=== PATIENT | female | born 1985 | race Caucasian/White ===

== ENCOUNTER 2017-11-16 14:43 | Emergency (ER) | payer OTHER ==
[2017-11-16] MEDS ORDERED: Ibuprofen 800 MG Tab PO ONE (16:04)
--- NOTE | 2017-11-16 16:07 | EDM.PDOC ---
ED HPI GENERAL MEDICAL PROBLEM - General Chief Complaint: Upper Extremity Injury/Pain Stated Complaint: RT WRIST INJURY Time Seen by Provider: 11/16/17 15:37 Source of Information: Reports: Patient History Limitations: Reports: No Limitations - History of Present Illness INITIAL COMMENTS - FREE TEXT/NARRATIVE: The patient is a 32-year-old female with a chief complaint of right hand pain after punching a wall. She is incarcerated. She has no additional complaint. She has a history of a prior fifth metacarpal fracture on that side, that was a long time ago. No numbness or weakness. Pain is moderate. Pain is worse with head movements. She is able to move her fingers. 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 - Past Surgical History Other Female Surgeries/Procedures: laparoscopy for endometriosis Social & Family History - Tobacco Use Smoking Status *Q: Former Smoker Used Tobacco, but Quit: Yes Month/Year Tobacco Last Used: 2017 - Caffeine Use Caffeine Use: Reports: None - Recreational Drug Use Recreational Drug Use: No Review of Systems - Review of Systems Review Of Systems: See Below Constitutional: Reports: No Symptoms Respiratory: Reports: No Symptoms Cardiovascular: Reports: No Symptoms GI/Abdominal: Reports: No Symptoms Musculoskeletal: Reports: Hand Pain Skin: Denies: Wound ED EXAM, GENERAL - Physical Exam Exam: See Below Exam Limited By: No Limitations General Appearance: Alert, WD/WN, No Apparent Distress Eye Exam: Bilateral Eye: Normal Inspection Ears: Normal External Exam Nose: Normal Inspection Throat/Mouth: Normal Inspection, Normal Oropharynx, Normal Voice, No Airway Compromise Head: Atraumatic, Normocephalic Neck: Normal Inspection Respiratory/Chest: No Respiratory Distress Cardiovascular: Normal Peripheral Pulses Extremities: Other (Right upper extremity: Patient has mild soft tissue swelling and erythema at the distal aspect of the third fourth and fifth metacarpals. No additional hand swelling. Full range of motion of the fingers. Mild tenderness of the distal third fourth and fifth metacarpals.) Neurological: Alert, Oriented, Normal Cognition Psychiatric: Normal Affect, Normal Mood Skin Exam: Warm, Dry, Intact, Normal Color, No Rash Course - Vital Signs Last Recorded V/S: Last Vital Signs Temp 36.9 C 11/16/17 15:26 Pulse 76 11/16/17 15:26 Resp 15 11/16/17 15:26 BP 136/82 11/16/17 15:26 Pulse Ox 97 11/16/17 15:26 - Orders/Labs/Meds Orders: Active Orders 24 hr Category Date Time Status Forearm 2V Rt [CR] Stat Exams 11/16/17 15:37 Taken Hand Comp Min 3V Rt [CR] Stat Exams 11/16/17 15:37 Taken Meds: Medications Discontinued Medications Generic Name Dose Route Start Last Admin Trade Name Freq PRN Reason Stop Dose Admin Ibuprofen 800 mg 11/16/17 16:04 Motrin PO 11/16/17 16:05 ONETIME ONE - Re-Assessments/Exams Free Text/Narrative Re-Assessment/Exam: 11/16/17 16:10 X-ray of the right hand showed no fractures. Departure - Departure Time of Disposition: 16:04 Disposition: Home, Self-Care 01 Clinical Impression: Hand contusion Qualifiers: Encounter type: initial encounter Laterality: right Qualified Code(s): S60.221A - Contusion of right hand, initial encounter - Discharge Information Prescriptions: Ibuprofen 600 mg PO QID PRN #40 tablet PRN Reason: Pain Referrals: An Ortiz PA-C [Primary Care Provider] - Forms: ED Department Discharge Additional Instructions: 1. Take ibuprofen and/or acetaminophen as needed for pain 2. Ice areas of pain on and off for the next two days. Keep hand elevated when possible to reduce swelling. 3. Follow up with a primary care provider next week if you still have pain. - My Orders Last 24 Hours: My Active Orders 11/16/17 15:37 Forearm 2V Rt [CR] Stat Hand Comp Min 3V Rt [CR] Stat - Assessment/Plan Last 24 Hours: My Active Orders 11/16/17 15:37 Forearm 2V Rt [CR] Stat Hand Comp Min 3V Rt [CR] Stat
--- NOTE | 2017-11-17 06:51 | CR ---
Right forearm: Two views of the right forearm were obtained. No fracture or other abnormality is seen. Impression: 1. No abnormality is identified on two-view right forearm study. Diagnostic code #1
--- NOTE | 2017-11-17 06:51 | CR ---
Right hand: Four views of the right hand were obtained. Comparison: No prior study. Joint spaces are preserved. No fracture, dislocation or other bony abnormality is seen. Impression: 1. No abnormality is identified on right hand exam. Diagnostic code #1
== END 2017-11-16 16:23 | disposition home or self-care (01) ==
LOC: JD.ED 14:43
DX: S60.221A Contusion of right hand, initial encounter (principal); Z91.030 Bee allergy status; Z87.891 Personal history of nicotine dependence; W22.8XXA Striking against or struck by other objects, initial encounter
CPT/HCPCS: 73090-26-RT; 73090-RT; 73130-26-RT; 73130-RT; 99283

== ENCOUNTER 2019-05-22 10:22 | Emergency (ER) | payer OTHER ==
--- NOTE | 2019-05-22 11:46 | CT ---
Head CT Technique: Multiple axial sections through the brain were obtained. Intravenous contrast was utilized. Comparison: No prior intracranial imaging is available. Findings: Ventricles along with basal cisterns and sulci over the convexities appear within normal limits for the patient's age. No abnormal parenchymal densities are seen. No evidence of intracranial hemorrhage. No midline shift or mass effect is appreciated. Bone window settings were reviewed which shows no acute calvarial abnormality. Mastoid sinuses show nothing acute. Visualized paranasal sinuses show nothing acute. Impression: 1. Nothing acute is appreciated on noncontrast head CT study Note: Given the patient's symptoms, consider MRI to further evaluate. Diagnostic code #1 Study was dictated in [place] Standard Time
[2019-05-22] MEDS ORDERED: Sodium Chloride 0.9% 1,000 ML IV SCH (12:45)
--- NOTE | 2019-05-22 14:24 | EDM.PDOC ---
ED HPI GENERAL MEDICAL PROBLEM - General Chief Complaint: Neuro Symptoms/Deficits Stated Complaint: DIZZY SENT BY [employer] Time Seen by Provider: 05/22/19 10:59 Source of Information: Reports: Patient, RN Notes Reviewed - History of Present Illness INITIAL COMMENTS - FREE TEXT/NARRATIVE: 34-year-old female is brought here to the ED by staff member from the [facility] with symptoms of blurry vision right eye and numbness and paresthesias left hand and arm less or extent left leg and foot. she states that she felt lightheaded and dizzy yesterday and especially last evening as to feel lightheaded and dizzy today when standing or walking. She did awaken at around 6:30 to take morning meds which would've been about 4 hours ago and at that time she did not have numbness of upper or lower extremities. She did awaken around 8:00 this morning she did have the numbness of her left hand arm and feeling of mild numbness or " weight of her left foot and lower leg. Last known well would be around 6:30 this morning 4 hours prior to arrival. At 8 :00 she then also noticed the blurriness of vision right eye. When she looked in the mirror she could see that her right eye was dilated compared to the left She is not aware of having difficulty in the past. There's been no speech difficulty. She feels some pressure to the top of her head but no generalized headache. This was called stroke alert due to presenting sx. - Related Data Allergies Allergy/AdvReac Type Severity Reaction Status Date / Time bee pollen Allergy Anaphylactic Verified 05/22/19 10:44 Shock Home Meds: Home Meds DULoxetine [Cymbalta] 60 mg PO DAILY 05/22/19 [History] Methadone 45 mg PO DAILY 05/22/19 [History] Sennosides [Senna] 8.6 mg PO DAILY 05/22/19 [History] cloNIDine [Catapres] 0.2 mg PO BID 05/22/19 [History] Past Medical History HEENT History: Reports: Impaired Vision, Otitis Media Other HEENT History: wears eyeglasses. Genitourinary History: Reports: UTI, Recurrent [employer] History: Reports: Endometriosis, Musculoskeletal History: Reports: Fracture Neurological History: Reports: Concussion, Head Trauma Psychiatric History: Reports: Addiction, Anxiety, Depression, PTSD Hematologic History: Reports: Anemia - Infectious Disease History Infectious Disease History: Reports: Chicken Pox - Past Surgical History Other Female Surgeries/Procedures: laparoscopy for endometriosis Social & Family History - Tobacco Use Smoking Status *Q: Never Smoker Second Hand Smoke Exposure: No - Caffeine Use Caffeine Use: Reports: Coffee, Soda - Recreational Drug Use Recreational Drug Use: Yes Drug Use in Last 12 Months: Yes Recreational Drug Type: Reports: Heroin, Marijuana/Hashish, Methamphetamine Other Recreational Drug Type: last use in "October." ED ROS GENERAL - Review of Systems Review Of Systems: See Below Constitutional: Denies: Fever, Chills, Diaphoresis HEENT: Reports: Vision Change (very mild blurriness R eye). Denies: Ear Discharge, Ear Pain, Eye Discharge, Eye Pain, Sinus Problem, Throat Pain, Vertigo Respiratory: Denies: Shortness of Breath, Wheezing Cardiovascular: Denies: Chest Pain GI/Abdominal: Denies: Abdominal Pain, Nausea, Vomiting Musculoskeletal: Denies: Neck Pain, Arm Pain, Back Pain Skin: Denies: Rash Neurological: Reports: Dizziness, Headache (pressure feeling top of head), Numbness (LUE and LLE), Other (no numbness head or face, no facial droop or speech difficulty) Psychiatric: Reports: No Symptoms ED EXAM, NEURO - Physical Exam Exam: See Below General Appearance: Alert, No Apparent Distress Eye Exam: Bilateral Eye: Vision Changes (visual acuity as per nursing note), Other (R pupil is mildly more dilated than the left) Ears: Normal External Exam, Normal Canal Nose: Normal Inspection Throat/Mouth: Normal Inspection, Normal Oropharynx Head Exam: Atraumatic. No: Facial Swelling Neck: Supple, Full Range of Motion, Other (no JVD) Respiratory/Chest: No Respiratory Distress, Lungs Clear, Normal Breath Sounds Cardiovascular: Normal Peripheral Pulses, Regular Rate, Rhythm GI/Abdominal: Soft, Non-Tender Neurological: Alert, Normal Mood/Affect, Normal Gait, Oriented x 3, Other ( finger to nose testing nl, no focal weakness, no gait difficulty, slight decrease sensation to touch LUE, good sensation and motor LLE. ). No: Abnormal Motor, Difficulty Walking Extremities: Normal Inspection, Normal Range of Motion Skin Exam: Warm, Dry, Normal Color, No Rash Course - Vital Signs Last Recorded V/S: Last Vital Signs Temp 96.9 F 05/22/19 17:15 Pulse 64 05/22/19 17:15 Resp 16 05/22/19 17:15 BP 118/75 05/22/19 17:15 Pulse Ox 96 05/22/19 17:15 Orthostatic Blood Pressure [ 92/63 Standing] Orthostatic Blood Pressure [ 96/60 Sitting] Orthostatic Blood Pressure [ 103/65 Supine] - Orders/Labs/Meds Labs: Laboratory Tests 05/22/19 05/22/19 Range/Units 11:15 11:15 WBC 7.72 (3.98-10.04) K/mm3 RBC 4.45 (3.98-5.22) M/mm3 Hgb 12.4 (11.2-15.7) gm/dl Hct 38.4 (34.1-44.9) % MCV 86.3 (79.4-94.8) fl MCH 27.9 (25.6-32.2) pg MCHC 32.3 (32.2-35.5) g/dl RDW Std Deviation 39.3 (36.4-46.3) fL Plt Count 282 (182-369) K/mm3 MPV 9.1 L (9.4-12.3) fl Neut % (Auto) 50.9 (34.0-71.1) % Lymph % (Auto) 36.9 (19.3-51.7) % Clinch % (Auto) 7.5 (4.7-12.5) % Eos % (Auto) 3.8 (0.7-5.8) Baso % (Auto) 0.6 (0.1-1.2) % Neut # (Auto) 3.93 (1.56-6.13) K/mm3 Lymph # (Auto) 2.85 (1.18-3.74) K/mm3 Clinch # (Auto) 0.58 H (0.24-0.36) K/mm3 Eos # (Auto) 0.29 (0.04-0.36) K/mm3 Baso # (Auto) 0.05 (0.01-0.08) K/mm3 Sodium 140 (136-145) mEq/L Potassium 4.4 (3.5-5.1) mEq/L Chloride 105 (98-107) mEq/L Carbon Dioxide 27 (21-32) mEq/L Anion Gap 12.4 (5-15) BUN 15 (7-18) mg/dL Creatinine 0.8 (0.55-1.02) mg/dL Est Cr Clr Drug Dosing 69.83 mL/min Estimated GFR (MDRD) > 60 (>60) mL/min BUN/Creatinine Ratio 18.8 H (14-18) Glucose 100 (74-106) mg/dL Calcium 8.5 (8.5-10.1) mg/dL Total Bilirubin 0.5 (0.2-1.0) mg/dL AST 20 (15-37) U/L ALT 26 (14-59) U/L Alkaline Phosphatase 78 (46-116) U/L Total Protein 7.0 (6.4-8.2) g/dl Albumin 3.6 (3.4-5.0) g/dl Globulin 3.4 gm/dL Albumin/Globulin Ratio 1.1 (1-2) Meds: Medications Discontinued Medications Generic Name Dose Route Start Last Admin Trade Name Efra PRN Reason Stop Dose Admin Gadobenate Dimeglumine 20 ml 05/22/19 15:40 05/22/19 15:41 Multihance IVPUSH 05/22/19 15:41 20 ml ONETIME ONE Administration Sodium Chloride 1,000 mls @ 999 mls/hr 05/22/19 12:45 05/22/19 12:41 Normal Saline IV 999 mls/hr ONETIME PHYLICIA Administration Sodium Chloride 30 ml 05/22/19 15:45 05/22/19 15:41 Saline Flush FLUSH 30 ml ASDIRECTED PHYLICIA Administration - Re-Assessments/Exams Free Text/Narrative Re-Assessment/Exam: 05/22/19 12:24 last known well about 6:30 this morning, about 4 hours prior to arrival. This was called a stroke alert based on symptoms on arrival to ED. Initial neuro exam was normal other than slight decrease to touch sensation left hand and arm. There was no focal weakness, no difficulty with finger to nose testing, no facial numbness,no speech impairment. Head CT did come back normal. MRI suggested based on symptoms. That has been no ordered. Awaiting MRI at this time. her blood pressure was low when I did check on her not long ago. She states she has been drinking water but her mouth is very dry, will run a full liter of normal saline. 05/27/19 18:23. MRI head, MRA neck and head all did come back normal. L sided numbness almost gone at time of reeval and time of discharge. Continued to have mildly larger R pupil compared to Left at time of discharge. Visual acuity at time of discharge was quite good, slightly decreased right compared to left. Discharge instr. as documented. Departure - Departure Time of Disposition: 17:14 Disposition: Home, Self-Care 01 Condition: Fair Clinical Impression: Paresthesias - Discharge Information Referrals: An Ortiz PA-C [Primary Care Provider] - Forms: ED Department Discharge Additional Instructions: The paresthesias, numbness and tingling that you have had of your left arm and leg should continue to get better over the next 12-24 hours. The expectation is that the dilitation of your R eye will also normalize over the next 1 to 2 days. See [employer] if eye symptoms not back to normal within 2 days as expected. Return to Ed if symptoms worsening in any way. Sepsis Event Note - Evaluation Sepsis Screening Result: No Definite Risk - Focused Exam Date Exam was Performed: 05/27/19 Time Exam was Performed: 18:18
[2019-05-22] MEDS ORDERED: Gadobenate Dimeglumine 529 MG/ML 20 ML SDV IVPUSH ONE (15:40)
[2019-05-22] MEDS ORDERED: Sodium Chloride 0.9% 10 ML Syringe FLUSH SCH (15:45)
--- NOTE | 2019-05-22 16:11 | MR ---
MR angiogram of neck Technique: MR angiogram study of the neck was obtained. Intravenous gadolinium was given. Multiple MIP images were obtained. Comparison: No prior neck imaging. Findings: Common carotid arteries on both sides appear normal. Internal carotid arteries and external carotid arteries are within normal limits. Vertebral arteries appear normal on both sides. No focal occlusion or stenosis is seen. No dissection is seen. Impression: 1. No abnormality is identified on MR angiogram study of the neck. Diagnostic code #1 Study was dictated in [place] Standard Time
--- NOTE | 2019-05-22 16:11 | MR ---
MRI brain (without and with intravenous contrast) Technique: T1 sagittal; T2, T2 FLAIR, T1 and diffusion axial; T2 gradient echo and T1 coronal; T2 FLAIR axial images were also obtained. T1 post gadolinium axial and post gadolinium T1 FLAIR coronal. Comparison: Prior head CT study performed earlier on the same day (11:10 AM). Findings: Ventricles along with basal cisterns and sulci over the convexities are within normal limits for the patient's age. No acute diffusion abnormalities are seen. Minimal increased signal is seen within the white matter within the right parietal region. This shows no abnormal diffusion and also shows no abnormal enhancement and is believed to represent an old small area of demyelination. No other abnormal signal is seen within the brain parenchyma. No midline shift or mass effect is appreciated. No abnormal enhancement is seen. Impression: 1. Small white matter area of increased signal showing no abnormal enhancement or no abnormal diffusion which likely represents a small nonspecific area of white matter demyelination within the right parietal white matter. 2. No additional abnormality is appreciated on MRI study of the brain. Diagnostic code #2 Study was dictated in [place] Standard Time
--- NOTE | 2019-05-22 16:32 | MR ---
MRI angiogram of brain Technique: [id number] MR angiogram study was obtained centered to the [place]. Multiple MIP images were obtained in multiple projections. Findings: Two distal vertebral arteries are seen which are patent. Basilar artery is patent. Posterior cerebral arteries appear within normal limits. Internal carotid arteries are seen distally and appear patent. Anterior and middle cerebral arteries appear patent. No focal stenosis is seen. No occlusion is identified. No discrete aneurysm is appreciated. Impression: 1. No abnormality is identified on MR angiogram study of the brain. Diagnostic code #1 Study was dictated in [place] Standard Time
== END 2019-05-22 17:35 | disposition home or self-care (01) ==
LOC: JD.ED 10:22
DX: R20.2 Paresthesia of skin (principal); Z91.030 Bee allergy status
CPT/HCPCS: 36415; 70450; 70544; 70548; 70553; 80053; 85025; 96360; 99284; A9577; J7030; 99283

== ENCOUNTER 2020-08-09 20:35 | Observation (INO) | payer MEDICAID ==
--- NOTE | 2020-08-09 21:54 | PCM.SN.2 ---
- Free Text/Narrative Note: Evaluation Note OB Physician: Dr. Smith HPI: Juany Frost is a 35-year-old -4-1-5 at 26 weeks 0 days who presents complaining of leaking of fluid and cramping. She reports that this afternoon she had a small amount of leaking of fluid that was clear fluid. She has not had any additional leaking of fluid since then. About an hour after the leaking of fluid she started to have some cramping and tightening in her abdomen. Patient has a significant history for delivery and was concerned that this may have been her water breaking as she has had in previous pregnancies. She denies any fevers or chills. Denies any nausea or vomiting. Denies any urinary symptoms. Denies any dysuria, urinary frequency or urgency. Denies any constipation or diarrhea. Reports that she has been taking normal amounts of fluid. She denies any recent drug use. She does have a history of drug use with amphetamines, marijuana and methamphetamine. Her care has been with Dr. Smith and is complicated by: * History of delivery and PPROM with 4 previous deliveries between 24 to 33 weeks gestational age and 1 SAB at 19 weeks gestational age. * Rh- status * Advanced maternal age Vitals: Vital Signs - 24 hr 08/09/20 20:47 Temperature [ 37.6 C Temporal] Pulse, 97 Peripheral [ Pulse Oximetry] Respiratory 16 Rate Blood Pressure 136/75 [Upper Arm] O2 Sat by Pulse 99 Oximetry Physical Examination: General: No acute distress, alert and oriented Lungs: Clear to auscultation bilaterally Heart: Regular rate and rhythm Abdomen: Soft, nontender, nondistended, gravid Pelvis: Normal-appearing external genitalia with normal-appearing labia majora and labia minora. No blood or fluid noted on the perineum. Extremities: No edema noted in bilateral lower extremities Sterile spec exam: Normal-appearing vaginal mucosa with small amount of suspected physiologic discharge noted in the vaginal vault, normal-appearing cervix with closed cervical opening, no bleeding or fluid coming from the cervical opening, fibronectin and wet prep swab collected Cervical exam: 0/10/-5/firm/posterior at 21:33 with exam performed by myself ----> 0/10/-5/firm/posterior at 23:08 with exam performed by myself FHT: 150s, moderate variability, positive 10 x 10 accelerations, intermittent variable decelerations [place]: Intermittent contractions every 3 to 5 minutes on initial monitoring with uterine irritability noted after oral hydration Labs: Laboratory Tests 08/09/20 08/09/20 08/09/20 Range/Units 20:55 20:55 20:57 Urine Color Yellow (Yellow) Urine Appearance Clear (Clear) Urine pH 6.0 (5.0-8.0) Ur Specific [place] > or = 1.030 (1.005-1.030) Urine Protein Negative (Negative) Urine Glucose (UA) Negative (Negative) Urine Ketones Trace H (Negative) Urine Occult Blood Negative (Negative) Urine Nitrite Negative (Negative) Urine Bilirubin Negative (Negative) Urine Urobilinogen 0.2 (0.2-1.0) Ur Leukocyte Esterase Negative (Negative) Urine RBC 0-5 (0-5) /hpf Urine WBC 0-5 (0-5) /hpf Ur Squamous Epith Cells 5-10 H (0-5) /hpf Urine Bacteria Moderate H (FEW) /hpf Urine Mucus Moderate H (FEW) /hpf Membrane Rupture Negative Urine Opiates Screen Negative (YUDCYU=088) Ur Buprenorphine Scrn Negative (CUTOFF=10) Ur Oxycodone Screen Negative (PJX9GN=727) Urine Methadone Screen Negative (HYEXPJ=366) Ur Propoxyphene Screen Negative (MCMTBX=989) Ur Barbiturates Screen Negative (UCIUYL=765) Ur Tricyclics Screen Negative (QGOYTX=933) Ur Phencyclidine Scrn Negative (CUTOFF=25) Ur Amphetamine Screen Negative (WGQGYN=867) U Methamphetamines Scrn Negative (FEEENO=452) U Benzodiazepines Scrn Negative (NPFJRN=848) U Cocaine Metab Screen Negative (QSFHAO=395) U Marijuana (THC) Screen Negative (CUTOFF=50) Fibronectin 08/09/20 Range/Units 21:32 Urine Color (Yellow) Urine Appearance (Clear) Urine pH (5.0-8.0) Ur Specific [place] (1.005-1.030) Urine Protein (Negative) Urine Glucose (UA) (Negative) Urine Ketones (Negative) Urine Occult Blood (Negative) Urine Nitrite (Negative) Urine Bilirubin (Negative) Urine Urobilinogen (0.2-1.0) Ur Leukocyte Esterase (Negative) Urine RBC (0-5) /hpf Urine WBC (0-5) /hpf Ur Squamous Epith Cells (0-5) /hpf Urine Bacteria (FEW) /hpf Urine Mucus (FEW) /hpf Membrane Rupture Urine Opiates Screen (MAZTGX=183) Ur Buprenorphine Scrn (CUTOFF=10) Ur Oxycodone Screen (MZM8UT=350) Urine Methadone Screen (CKPZLP=549) Ur Propoxyphene Screen (RDCHKY=773) Ur Barbiturates Screen (VROYYG=143) Ur Tricyclics Screen (DFVRHI=641) Ur Phencyclidine Scrn (CUTOFF=25) Ur Amphetamine Screen (SFUWPX=354) U Methamphetamines Scrn (KFRAXF=166) U Benzodiazepines Scrn (WVZJAC=951) U Cocaine Metab Screen (EMERZE=551) U Marijuana (THC) Screen (CUTOFF=50) Fibronectin Negative Interventions: Oral hydration Macrobid 100 mg p.o. Discharge Medications: Macrobid 100 mg twice daily x5 days Assessment and Plan: Juany Frost is a 35-year-old -4-1-5 at 26 weeks 0 days with suspected urinary tract infection in the second trimester of with mild dehydration * Suspected urinary tract infection -patient with suspected urinary tract infection based on moderate amount of bacteria found in the urine. Patient was also having some cramping that may be due to this urinary tract infection. It is possible that the cramping was also due to some mild dehydration. The cramping did improve with oral rehydration. Patient given Macrobid 100 mg prior to discharge. Patient to continue with Macrobid 100 mg twice daily for 5 days. A urine culture was sent and we will follow up on the results once they are available. If there is no evidence of urinary tract infection then she should stop the antibiotic at that time. * Uterine cramping -patient with some mild uterine cramping and abdominal tightening that started after her small gush of fluid. There was no evidence of premature rupture of membranes with negative AmniSure. No evidence of labor with unchanged cervical exam over the course of 1.5 hours. Patient had negative fibronectin. Wet prep did not show any evidence of bacterial vaginosis or yeast infection. Her urine did show possible urinary tract infection and is going to be treated with antibiotics. Did also show some mild dehydration. Recommend for patient to stay well-hydrated and rest if she is having some cramping symptoms. * Reassuring heart tones for gestational age on monitoring * She was given strict return precautions including leaking of fluid, uterine cramping or vaginal bleeding. Patient verbalized understanding. * Patient should follow-up with her regular provider for next scheduled appointment. Brent Lee MD 11:17 PM 08/09/2020
[2020-08-09] MEDS ORDERED: Nitrofurantoin Monohydrate/Macrocrystalline 100 MG Cap PO ONE (23:13)
== END 2020-08-09 23:30 ==
LOC: JD.OBCHECK 20:35 → JD.OB 20:36 → JD.OBCHECK 20:46 → JD.OB 20:47
PROVIDERS: ADMIT Obstetrics & Gynecology; ATTEND Obstetrics & Gynecology
DX: O26.892 Other specified pregnancy related conditions, second trimester (principal); O09.212 Supervision of pregnancy with history of pre-term labor, second trimester; N89.8 Other specified noninflammatory disorders of vagina; E86.0 Dehydration; N94.89 Other specified conditions associated with female genital organs and menstrual cycle; Z3A.26 26 weeks gestation of pregnancy
CPT/HCPCS: 59025; 80306; 81001; 82731; 84112; 87086; 87210; 87808; A9270